=== PATIENT | female | born 1970 | race African-American/Black ===

== ENCOUNTER → 2016-12-17 14:59 | Emergency (ER) | payer OTHER | END | disposition home or self-care (01) | LOC: ER 14:59 | DX: M25.561 Pain in right knee (principal); I10 Essential (primary) hypertension; Z88.5 Allergy status to narcotic agent; Z91.013 Allergy to seafood | CPT/HCPCS: 73560-RT; 99283 ==

== ENCOUNTER 2017-01-03 13:43 | Emergency (ER) | payer OTHER | END 2017-01-03 13:45 | disposition home or self-care (01) | LOC: ER 13:43 | DX: S56.911A Strain of unspecified muscles, fascia and tendons at forearm level, right arm, initial encounter (principal); F17.200 Nicotine dependence, unspecified, uncomplicated; Z88.5 Allergy status to narcotic agent; Z91.013 Allergy to seafood; W19.XXXA Unspecified fall, initial encounter | CPT/HCPCS: 73090-RT; 99283; A9270-GY ==